=== PATIENT | female | born 1980 | race Caucasian/White ===

== ENCOUNTER 2017-11-20 13:29 | Emergency (ER) | payer SELFPAY ==
[~2017-11-20] VITALS: Ht 165.1 cm; Wt 66.0 kg
[2017-11-20 13:32] VITALS: BP 123/73
[2017-11-20] MEDS ORDERED: ONDANSETRON HCL 4MG/2ML VIAL IV STA (13:38)
[2017-11-20] MEDS ORDERED: MORPHINE SULFATE 4 MG/ML CPJ (NOT FOR IM USE) IV STA (13:38)
[2017-11-20] MEDS ORDERED: SODIUM CHLORIDE 0.9% 1,000 ML IV ONE (13:38)
[2017-11-20] MEDS ORDERED: MORPHINE SULFATE 4 MG/ML CPJ (NOT FOR IM USE) IV ONE (13:44)
[2017-11-20] MEDS ORDERED: ONDANSETRON HCL 4MG/2ML VIAL ONE (13:44)
[2017-11-20] MEDS ORDERED: ACETAMINOPHEN 325MG TABLET ONE (14:05)
[2017-11-20 14:22] LABS: CLARITY URINE CLEAR (CLEAR); COLOR URINE YELLOW (YELLOW); KETONES URINE NEGATIVE (NEGATIVE); LEUKOCYTE ESTERASE URINE 1+ (NEGATIVE); NITRITE URINE NEGATIVE (NEGATIVE); OCCULT BLOOD URINE 3+ (NEGATIVE); PH URINE 6.5 (4.5-8.0); PROTEIN URINE TRACE (NEGATIVE); SPECIFIC GRAVITY URINE 1.007 (1.005-1.030); UROBILINOGEN URINE 0.2 E.U./dL (0.2-1.0)
[2017-11-20] MEDS ORDERED: ACETAMINOPHEN 325MG TABLET PO ONE (15:00)
== END 2017-11-20 16:49 | disposition left against medical advice (07) ==
LOC: ER 13:44
DX: N30.00 Acute cystitis without hematuria (principal)
CPT/HCPCS: 81003; 99283; J7030; J2270; J2405

== ENCOUNTER 2022-08-12 20:15 | Emergency (ER) | payer MEDICAID ==
[~2022-08-12] VITALS: Ht 147.3 cm; Wt 61.1 kg
[2022-08-12 20:28] VITALS: BP 124/76
[2022-08-12 22:07] LABS: BASOPHILS % 0.6 % (0.0-2.0); CHLORIDE 96 mEq/L (98-107); EOSINOPHILS % 1.1 % (0.0-5.0); HEMATOCRIT. 33.9 % (36.0-48.0); HEMOGLOBIN. 10.4 g/dL (12.0-16.0); LYMPHOCYTES % 42.6 % (20.0-50.0); MEAN CORPUSCULAR HEMOGLOBIN 19.9 pg (28.0-32.0); MEAN PLATELET VOLUME 7.8 fl (7.4-10.4); NEUTROPHILS % 50.7 % (40.0-76.0); PLATELET 393 x1000/uL (130-400); RED BLOOD CELL COUNT 5.22 mill/uL (4.2-5.4); RED CELL DISTRIBUTION WIDTH 19.5 % (11.6-14.6)
[2022-08-12 22:18] LABS: BETA HYDROXYBUTYRATE 0.1 mMol/L (0.0-0.3)
[2022-08-12 22:44] LABS: PLATELET ESTIMATE NORMAL
[2022-08-13] MEDS ORDERED: SITA100T11 MT (01:54)
[2022-08-13] MEDS ORDERED: METF-416 MT (01:54)
== END 2022-08-13 02:05 | disposition home or self-care (01) ==
LOC: ER 20:15
DX: E11.65 Type 2 diabetes mellitus with hyperglycemia (principal); Z79.84 Long term (current) use of oral hypoglycemic drugs
CPT/HCPCS: 36415; 80053; 82010; 82962; 85025; 99283